=== PATIENT | female | born 1940 | race African-American/Black ===

== ENCOUNTER 2017-02-13 12:58 | Emergency (ER) | payer OTHER ==
[~2017-02-13] VITALS: Ht 165.1 cm; Wt 55.3 kg
--- NOTE | ~2017-02-13 | EKG ---
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: KKODJOVI : 1940 Requested By: Mehdi Jorgensen Order Number: [id number] MD: Bin Michael Measurements Intervals [place] Rate: 78 P: 68 MO: 185 QRS: -7 QRSD: 87 T: 46 QT: 371 QTc: 423 Interpretive Statements Sinus rhythm Ventricular trigeminy Right atrial enlargement Low voltage, extremity leads Minimal ST elevation, anterior leads Compared to ECG 04/17/2015 06:41:18 Electronically Signed On 02-13-2017 22:05:05 CDT by Bin Michael [email or web address] <ELECTRONICALLY SIGNED> By: Bin Michael MD 02/13/17 2205 1423 1423 Bin Michael MD /[facility]
[~2017-02-13 12:58] MED LIST: ADVAIR 250-501 EACH INH; ALDACTONE25 MG PO; ASPIR 8181 MG PO; COREG3.125 MG PO; COUMADIN 2.5MG2.5 M1 PO; DEMADEX20 MG PO; HYDROCODONE-AP1 EAC6 PO; LISINOPRIL2.5 M1 PO; NORVASC5 MG PO; PRAVASTATIN SOD80 MG PO; SPIRIVA INH; TYLENOL325 MG PO; VENTOLIN HFA 1818 GM INH; XANAX 0.25 MG0.25 MG PO
[2017-02-13 13:48] LABS: HEMATOCRIT 38.6 % (37.0-47.0); HEMOGLOBIN 12.6 gm/dL (12.0-15.0); MCH 28.8 pg (26.0-34.0); MCHC 32.6 g/dL (28.0-37.0); MCV 88.6 fL (80.0-100.0); RBC 4.36 mil/uL (4.20-5.00); RDW 14.7 % (10.5-14.5); WBC 10.2 thou/uL (4.0-11.0)
[2017-02-13 13:53] LABS: ANION GAP 6 mmol/L (7-16); BUN 19 mg/dL (7-18); CALCIUM 9.2 mg/dL (8.5-10.1); CHLORIDE 105 mmol/L (98-107); CO2 28 mmol/L (21-32); CREATININE 1.2 mg/dL (0.6-1.0); GLUCOSE 105 mg/dL (74-106); POTASSIUM 5.1 mmol/L (3.5-5.1); SODIUM 139 mmol/L (136-145)
[2017-02-13 14:02] LABS: TROPONIN-I < 0.04 ng/mL (<0.04-0.07)
[2017-02-13] MEDS ORDERED: KLOR-CON 1010 MEQ PO (14:28)
[2017-02-13 14:35] LABS: INR 2.3; PROTIME 24.3 Seconds (9.3-11.4)
== END 2017-02-13 15:16 | disposition home or self-care (01) ==
LOC: ER 12:58
PROVIDERS: Emergency Medicine; Nurse Practitioner Family
DX: G45.9 Transient cerebral ischemic attack, unspecified (principal); I25.2 Old myocardial infarction; E78.5 Hyperlipidemia, unspecified; I11.0 Hypertensive heart disease with heart failure; I50.9 Heart failure, unspecified; J44.9 Chronic obstructive pulmonary disease, unspecified; F10.99 Alcohol use, unspecified with unspecified alcohol-induced disorder; Z90.711 Acquired absence of uterus with remaining cervical stump

== ENCOUNTER → 2020-01-30 | Outpatient (CLI) | payer OTHER ==
[~2020-01-30] MED LIST changes: +KLOR-CON 1010 MEQ PO
== END ==
LOC: SJCVCIMAG 09:17
PROVIDERS: ATTEND Internal Medicine Cardiovascular Disease
DX: R94.31 Abnormal electrocardiogram [ECG] [EKG] (principal); I08.1 Rheumatic disorders of both mitral and tricuspid valves; I42.8 Other cardiomyopathies; E78.00 Pure hypercholesterolemia, unspecified; I70.1 Atherosclerosis of renal artery; G45.9 Transient cerebral ischemic attack, unspecified; D68.59 Other primary thrombophilia; Z95.810 Presence of automatic (implantable) cardiac defibrillator; Z86.73 Personal history of transient ischemic attack (TIA), and cerebral infarction without residual deficits

== ENCOUNTER 2021-01-24 10:48 | Inpatient (IN) | payer OTHER ==
[~2021-01-24] VITALS: Ht 167.6 cm; Wt 50.4 kg
[2021-01-24 10:59] VITALS: BP 123/100
[2021-01-24 12:15] LABS: ABSOLUTE NEUTROPHILS 9.2 thou/uL (1.4-8.2); BASOPHILS 1.1 % (0.0-2.0); EOSINOPHILS 0.8 % (0.0-3.0); LYMPHOCYTES 11.2 % (24.0-44.0); MCH 20.8 pg (26.0-34.0); MCV 69.2 fL (80.0-100.0); MONOCYTES 5.5 % (1.0-8.0); PLATELET COUNT 487 thou/uL (150-400); POLYS 81.4 % (36.0-66.0); RBC 2.83 mil/uL (4.20-5.00); RDW 22.8 % (10.5-14.5); WBC 11.3 thou/uL (4.0-11.0)
[2021-01-24 12:17] LABS: HEMOGLOBIN 5.9 gm/dL (12.0-15.0)
[2021-01-24 12:18] LABS: HEMATOCRIT 19.6 % (37.0-47.0)
[2021-01-24 12:33] LABS: ANION GAP 7 mmol/L (7-16); BUN 58 mg/dL (7-18); CALCIUM 9.5 mg/dL (8.5-10.1); CREATININE 1.3 mg/dL (0.6-1.0); GLUCOSE 145 mg/dL (74-106); SGOT 11 U/L (15-37); SGPT 17 U/L (14-59); TOTAL BILIRUBIN 0.2 mg/dL (0.2-1.0); TOTAL PROTEIN 6.7 g/dL (6.4-8.2); TROPONIN-I <0.06 ng/mL (<0.06)
[2021-01-24 12:42] LABS: CHLORIDE 105 mmol/L (98-107); CO2 22 mmol/L (21-32); SODIUM 135 mmol/L (136-145)
[2021-01-24 12:46] LABS: POTASSIUM 6.3 mmol/L (3.5-5.1)
[2021-01-24] MEDS ORDERED: CENTRUM SILVER1 EAC4 PO (12:48)
[2021-01-24] MEDS ORDERED: ELIQUIS5 MG PO (12:48)
--- NOTE | 2021-01-24 12:57 | EKG ---
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: : 1940 Requested By: Ivette Tavarez Order Number: [id number] MD: Flavio Owens Measurements Intervals [place] Rate: 90 P: 80 [place]: 187 QRS: 89 QRSD: 85 T: 65 QT: 344 QTc: 421 Interpretive Statements Sinus rhythm Low voltage with right axis deviation Compared to ECG 02/13/2017 14:23:37 Right-axis deviation now present Ventricular premature complex(es) no longer present Atrial abnormality no longer present ST (T wave) deviation still present Electronically Signed On 01-24-2021 12:57:27 CDT by Flavio Owens [email or web address] <ELECTRONICALLY SIGNED> By: Flavio Owens MD, [facility] 01/24/21 1257 1217 [facility] Flavio Owens MD, [facility] /EPI
[2021-01-24 12:59] LABS: URINE BILIRUBIN NEGATIVE (Negative); URINE BLOOD NEGATIVE (Negative); URINE CLARITY CLEAR; URINE COLOR YELLOW; URINE GLUCOSE-RANDOM* NEGATIVE (Negative); URINE KETONES NEGATIVE (Negative); URINE LEUKOCYTES-REFLEX NEGATIVE (Negative); URINE NITRITE-REFLEX NEGATIVE (Negative); URINE PROTEIN (DIPSTICK) NEGATIVE (Negative); URINE UROBILINOGEN 0.2 E.U./dl (0.2-1.0)
[2021-01-24 13:19] LABS: POLYCHROMASIA 2+; SCHISTOCYTES 1+; TARGET CELLS 1+
[2021-01-24 13:20] LABS: TEARDROPS FEW
[2021-01-24 13:37] LABS: MAGNESIUM 2.3 mg/dL (1.8-2.4); PHOSPHORUS 4.6 mg/dL (2.5-4.9)
[2021-01-24 14:29] LABS: PROTIME 10.9 Seconds (10.5-12.1)
[2021-01-24 14:40] LABS: % SATURATION 2 % (20-39); IRON 9 ug/dL (50-170); TIBC 377 ug/dL (250-450)
[2021-01-24 15:13] VITALS: BP 97/36
[2021-01-24 16:19] VITALS: BP 127/107
[2021-01-24 18:27] VITALS: BP 102/58; BP 90/50
--- NOTE | 2021-01-24 20:24 | NUR ---
RN ADMITTED PT FROM ER ABOUT 1700PM FOR GI BLEEDING AND HGB 5.9, PT IS A&O X4, PT STARTED BLOOD TRANSFUSION ABOUT 1730PM, PT DOES NOT HAVE BLOOD TRANSFUSION REACTION AT DAY SHIFT, PT HAS STRATED IV PANTOPRAZOLE 8MG /HR, PT DENIES PAIN AND SOB BY THIS ELISABETH, RN HAS REPORTED TO NEXT SHIFT TO KEEP EYE ON PT AND BLOOD TRANSFUSION.
[2021-01-24 21:30] VITALS: BP 102/58; BP 102/8
[2021-01-24 23:54] LABS: HEMATOCRIT 24.9 % (37.0-47.0); HEMOGLOBIN 7.7 gm/dL (12.0-15.0)
--- NOTE | 2021-01-25 02:24 | NUR ---
BLOOD TRANSFUSION IN PROGRESS AT START OF SHIFT.DONE AT 0.NO TRANSFUSION REACTION NOTED.H&H REPEATED ONE HOUR POST BLOOD TRANSFUSION HGB UP TO 7.7.PT CONT ON PROTONIX GTT,CLIFTON WELL.PT ATE POST TRANSFUSION.PT DENIED PAIN/DIZZINESS.PT SLEEPING ON HER BED AT THIS TIME.CALL LIGHT WITHIN REACH.
[2021-01-25 03:45] VITALS: BP 127/64
[2021-01-25 05:32] LABS: HEMATOCRIT 24.1 % (37.0-47.0); HEMOGLOBIN 7.6 gm/dL (12.0-15.0); MCHC 31.6 g/dL (28.0-37.0); MCV 72.9 fL (80.0-100.0); RBC 3.31 mil/uL (4.20-5.00); RDW 24.1 % (10.5-14.5); WBC 12.6 thou/uL (4.0-11.0)
[2021-01-25 05:39] LABS: CALCIUM 8.9 mg/dL (8.5-10.1); CREATININE 1.1 mg/dL (0.6-1.0); POTASSIUM 5.4 mmol/L (3.5-5.1)
[2021-01-25 08:10] VITALS: BP 94/50
--- NOTE | 2021-01-25 08:29 | 2DMMODE ---
[facility] [place] [address] 2 D/M-MODE ECHOCARDIOGRAM Name: ODILIA FLOYD Room #: 357-P ADM IN M.R.#: [id number] Admission: 01/24/21 Attend Phys: Jesus Gr MD Discharge: Date of : 42 Report #: [id number] THIS REPORT FOR: cc: Adolfo Rivas MD [facility] Adolfo Rivas MD [facility] Flavio Owens MD [facility] ~ APPROVED REPORT Study performed: 01/25/2021 07:41:19 EXAM: Comprehensive 2D, Doppler, and color-flow Echocardiogram Patient Location: Bedside Room #: 357 Status: routine BSA: 1.44 HR: 79 bpm BP: 127/64 mmHg Rhythm: Sinus arr Other Information Study Quality: Adequate Indications Atrial Fibrillation Dyspnea Hx: [place], cardiac arrest, AICD, COPD. 2D Dimensions RVDd: 32.00 mm IVSd: 12.00 (7-11mm) LVOT Diam: 21.00 (18-24mm) LVDd: 39.00 mm PWd: 12.00 (7-11mm) LVDs: 24.00 (25-40mm) Left Atrium: 25.00 (27-40mm) Aortic Root: 31.27 mm Volumes Left Atrial Volume (Systole) Single Plane 4CH: 29.56 mL Single Plane 2CH: 48.17 mL LA ESV Index: 28.00 mL/m2 Aortic Valve AoV Peak Amado.: 1.73 m/s AO Peak Gr.: 12.03 mmHg LVOT Max P.68 mmHg [facility] [address] [place] [address] 2 D/M-MODE ECHOCARDIOGRAM Name: EVERETTODILIA Mary Room #: 357-P [facility]#: [id number] Admission: 01/24/21 Attend Phys: Jesus Gr MD Discharge: Date of : 42 Report #: [id number] LVOT Max V: 0.96 m/s SHAMEKA Vmax: 1.90 cm2 Mitral Valve E/A Ratio: 0.7 MV Decel. Time: 171.98 ms MV E Max Amado.: 0.79 m/s MV A Amado.: 1.07 m/s MV PHT: 49.87 ms IVRT: 65.74 ms Pulmonary Valve PV Peak Amado.: 0.97 m/s PV Peak Gr.: 3.75 mmHg Tricuspid Valve TR Peak Amado.: 3.88 m/s RAP Estimate: 5.00 mmHg TR Peak Gr.: 60.18 mmHg PA Pressure: 65.00 mmHg Left Ventricle The left ventricle is normal size. There is normal LV segmental wall motion. Mild concentric left ventricular hypertrophy. Left ventricular systolic function is normal. LVEF is 55%. Mild diastolic dysfunction is present (impaired relaxation pattern). Right Ventricle The right ventricle is normal size. The right ventricular systolic function is normal. Device lead is present in the right ventricle. Atria The left atrium size is normal. The right atrium size is normal. Aortic Valve The aortic valve is normal in structure; leaflets are mildly sclerotic. No aortic regurgitation is present. There is no aortic valvular stenosis. Mitral Valve The mitral valve is normal in structure. Moderate mitral annular calcification. Moderate mitral regurgitation. No evidence of mitral valve stenosis. Tricuspid Valve The tricuspid valve is normal in structure. Moderate tricuspid regurgitation. Estimated PAP is 65mmHg. [facility] [address] [place] [address] 2 D/M-MODE ECHOCARDIOGRAM Name: ODILIA FLOYD Room #: 357-P ADM IN M.R.#: [id number] Admission: 01/24/21 Attend Phys: Jesus Gr MD Discharge: Date of : 42 Report #: [id number] Pulmonic Valve The pulmonary valve is normal in structure. Trace pulmonic regurgitation. Great Vessels The aortic root is normal in size. Ascending aorta is not well visualized. IVC is normal in size and collapses >50% with inspiration. Pericardium There is no pericardial effusion. <Conclusion> Normal left ventricular size with mild concentric hypertrophy Ejection fraction 55% Grade 1 diastolic dysfunction Normal right ventricle size/function Normal atrial size Color-flow Doppler study was performed of the aortic/mitral/tricuspid/pulmonary valve Normal aortic valve structure and function Moderate mitral annular calcification Moderate mitral valve insufficiency Mild to moderate tricuspid valve insufficiency Pulmonary systolic pressure estimated 65 mmHg No pericardial effusion Normal aortic root size. <ELECTRONICALLY SIGNED> By: Flavio Owens MD, FACC 01/25/21828 8 8 Flavio Owens MD, FACC /INF
[2021-01-25 11:34] VITALS: BP 97/44
--- NOTE | 2021-01-25 15:08 | NUR ---
INITIAL ASSESSMENT: Received consult. ZEN reviewed chart and spoke with nursing and attending physician. Pt was admitted from home due to GI bleed. Pt has had a blood transfusion. GI consulted. Plan for EGD/colonoscopy tomorrow. Pt with cecum mass. Pt is on IV iron. SW met with pt at bedside. Introduced role of SW. Pt is alert/orientated x 4. Pt reports she lives at home alone. Prior to admission, pt was independent with ADLs. No use of DME. Pt has used [facility] in the past. Pt reports she does not currently have a PCP. Plan is for pt to discharge home when medically stable. SW is following to assist as needed with discharge planning.
[2021-01-25 15:40] VITALS: BP 114/49
--- NOTE | 2021-01-25 16:11 | NUR ---
BPCI letter and preferred provider network list provided to patient, lives in home setting
[2021-01-25 17:49] VITALS: BP 111/59
[2021-01-25 19:57] VITALS: BP 114/57
--- NOTE | 2021-01-25 19:57 | NUR ---
RN ASSUMED PT'S CARE AT 0700AM, PT IS A&OX3 ( PERSON , PLACE AND TIME), PT'S GI BLEEDING AND HGB HAVE IMPROVED, PT'S VS ARE STABLE, PT GETS UP TO CHAIR WITH ASSIST, PT IS GOING TO HAVE EGD AND COLONCOSPY TOMORROW. RN HAS REPROT TO NEXT SHIFT TO CONTINUINE DR ORDER FOR EGD , PT WILL BE NPO AFTER MN .
[2021-01-26 04:40] VITALS: BP 101/57
[2021-01-26 05:22] LABS: CALCIUM 8.6 mg/dL (8.5-10.1); CREATININE 0.9 mg/dL (0.6-1.0); POTASSIUM 4.9 mmol/L (3.5-5.1)
--- NOTE | 2021-01-26 07:48 | NUR ---
PROGRESS PT A/O X4 UP AD JONNY. DRANK 100% OF BOWEL PREP AND STOOLS ARE CLEAR. DENIES PAIN. IV TO RAC AND LF SL FLUSHES WITHOUT DIFFICULTY. NPO AFTER MN CONTINUE POC.
[2021-01-26 08:06] VITALS: BP 107/45
[2021-01-26 09:17] LABS: HEMATOCRIT 25.3 % (37.0-47.0); HEMOGLOBIN 7.7 gm/dL (12.0-15.0); MCH 22.7 pg (26.0-34.0); MCHC 30.3 g/dL (28.0-37.0); MCV 75.1 fL (80.0-100.0); RBC 3.37 mil/uL (4.20-5.00); RDW 24.4 % (10.5-14.5); WBC 14.8 thou/uL (4.0-11.0)
[2021-01-26 11:50] VITALS: BP 118/49
--- NOTE | 2021-01-26 17:58 | NUR ---
PATIENT HAD COLONOSCOPY AND EGD COMPLETED THIS SHIFT. PATIENT REMAINS A/OX3, FC, SAHA AND STANDBY ASSIST. PATIENT INFORMED ABOUT ONCOLOGY AND SURGICAL CONSULTS. FAMILY UPDATED THROUGHOUT SHIFT. NO C/O BLOOD IN STOOL OR NAUSEA.
[2021-01-26 19:15] VITALS: BP 117/61
[2021-01-27 03:45] VITALS: BP 112/56
--- NOTE | 2021-01-27 04:51 | NUR ---
Patient making slow progress towards outcome goals. Cancer work up in progress. CT of chest with contrast done tonight. Vital signs and rhythm stable. Denies pain. Up x 1 assist. High fall risks, fall precautions in place. Calls out appropriately for needs.
[2021-01-27 05:38] LABS: HEMOGLOBIN 6.9 gm/dL (12.0-15.0)
[2021-01-27 05:42] LABS: MCH 23.2 pg (26.0-34.0); MCHC 31.1 g/dL (28.0-37.0); MCV 74.5 fL (80.0-100.0); RBC 2.95 mil/uL (4.20-5.00); RDW 24.8 % (10.5-14.5); WBC 12.6 thou/uL (4.0-11.0)
[2021-01-27 05:49] LABS: CREATININE 0.7 mg/dL (0.6-1.0); MAGNESIUM 1.9 mg/dL (1.8-2.4); POTASSIUM 4.3 mmol/L (3.5-5.1)
[2021-01-27 07:58] VITALS: BP 91/47
[2021-01-27 12:02] VITALS: BP 115/41; BP 123/50; BP 95/48
[2021-01-27 13:09] LABS: CA 125 4.1 U/mL (0.0-38.1)
[2021-01-27 15:13] VITALS: BP 115/41
--- NOTE | 2021-01-27 15:42 | NUR ---
PT TOLERATED BLOOD INFUSION. VITALS WNL.
--- NOTE | 2021-01-27 16:28 | NUR ---
SW reviewed chart and spoke with nursing and attending physician. Pt had EGD/colonoscopy yesterday. Pt with cecum mass. Hem/onc and surgery consulted. Pt had blood transfusion earlier today. Pt is in the BPCI program. SW is following to assist as needed with discharge planning.
[2021-01-27 20:10] VITALS: BP 101/49
--- NOTE | 2021-01-28 04:00 | NUR ---
Patient making slow progress towards outcome goals. Vital signs and rhythm stable. Up with standby assist to BSC. High fall risks, fall precautions in place. Calls out appropriately for needs. Await surgery schedule.
[2021-01-28 04:10] VITALS: BP 115/55
[2021-01-28 04:16] LABS: HEMATOCRIT 28.7 % (37.0-47.0); MCH 24.3 pg (26.0-34.0); MCHC 31.3 g/dL (28.0-37.0); MCV 77.5 fL (80.0-100.0); RBC 3.7 mil/uL (4.20-5.00); RDW 24.6 % (10.5-14.5); WBC 11.1 thou/uL (4.0-11.0)
[2021-01-28 04:30] LABS: CALCIUM 8.2 mg/dL (8.5-10.1); CREATININE 0.8 mg/dL (0.6-1.0); MAGNESIUM 1.9 mg/dL (1.8-2.4)
[2021-01-28 07:12] VITALS: BP 108/50
[2021-01-28 11:50] VITALS: BP 117/70
[2021-01-28 13:08] LABS: CEA 1.4 ng/mL (0.0-4.7)
--- NOTE | 2021-01-28 13:57 | NUR ---
SW reviewed chart and spoke with nursing and attending physician. No weekend discharge planned. Pt is on IV iron. Surgery consulted. Plan for lap right hemicolectomy next week. Hem/Onc consulted. ZEN is following to assist as needed with discharge planning.
[2021-01-28 15:35] VITALS: BP 127/59
[2021-01-29 04:39] VITALS: BP 116/54
[2021-01-29 05:35] LABS: HEMATOCRIT 27.9 % (37.0-47.0); HEMOGLOBIN 8.9 gm/dL (12.0-15.0); MCHC 32.1 g/dL (28.0-37.0); RBC 3.57 mil/uL (4.20-5.00); RDW 25.4 % (10.5-14.5); WBC 9.8 thou/uL (4.0-11.0)
[2021-01-29 05:42] LABS: CALCIUM 7.7 mg/dL (8.5-10.1); CREATININE 0.8 mg/dL (0.6-1.0); MAGNESIUM 1.9 mg/dL (1.8-2.4); POTASSIUM 3.9 mmol/L (3.5-5.1)
[2021-01-29 07:10] VITALS: BP 126/67
[2021-01-29 11:12] VITALS: BP 98/51
[2021-01-29 15:20] VITALS: BP 113/64
[2021-01-29 19:42] VITALS: BP 93/47
[2021-01-30 03:01] VITALS: BP 136/74
[2021-01-30 05:34] LABS: HEMATOCRIT 29.9 % (37.0-47.0); HEMOGLOBIN 9.3 gm/dL (12.0-15.0); MCH 24.6 pg (26.0-34.0); MCHC 31.1 g/dL (28.0-37.0); RBC 3.79 mil/uL (4.20-5.00); RDW 25.8 % (10.5-14.5); WBC 9.8 thou/uL (4.0-11.0)
--- NOTE | 2021-01-30 07:17 | NUR ---
PROGRESS PT A/O X4 UP AD JONNY VSS, PT WORRIED ABOUT PENDING SURGERY. I TRIED TO REASSURE HER THAT IT IS A COMMON PROCEDURE AND EVEN THOUGH SHE IS ALMOST 81 YRS OLD SHE WOULD DO WELL BECAUSE SHE IS ACTIVE AND IN GOOD SHAPE. REPORTED HEADACHE AND TYLENOL GIVEN WTIH EFFECT PT SLEEPING AFTER.
[2021-01-30 07:39] VITALS: BP 125/54
[2021-01-30 11:03] VITALS: BP 127/76
[2021-01-30 15:28] VITALS: BP 119/52
[2021-01-30 18:55] VITALS: BP 124/60
[2021-01-31 05:30] VITALS: BP 130/69
--- NOTE | 2021-01-31 05:55 | NUR ---
Pt. stated she didn't sleep at all and have been up all night. No signs of bleeding. Denies any other concern. Up ad cat in room with steady gait.
[2021-01-31 07:05] VITALS: BP 137/69
[2021-01-31 11:03] VITALS: BP 131/54
[2021-01-31 15:39] VITALS: BP 112/65
--- NOTE | 2021-01-31 18:34 | NUR ---
ASSUMED PATIENT CARE AT 0700. A/0 X4. NO BLEEDING NOTED. PROGRESSING TOWARDS POC GOALS.
[2021-01-31 21:23] VITALS: BP 125/79
[2021-02-01 03:40] VITALS: BP 137/78
--- NOTE | 2021-02-01 06:09 | NUR ---
VSS OVERNIGHT. NO BLEEDING SEEN. PT UP TO BATHROOM AD JONNY. PT WAITING ON SURGERY. IN PREVIOUS NOTE SAID ONOCOLOGY WAS TO BE CONSULTED, HAVE NOT SEEN THE ORDER FOR CONSULT. WILL PASS INFORMATION ALONG TO DAY NURSE.
[2021-02-01 07:26] VITALS: BP 116/67
[2021-02-01 11:15] VITALS: BP 103/36
--- NOTE | 2021-02-01 13:08 | NUR ---
SW reviewed chart and spoke with nursing and attending physician. Lap right hemicolectomy is anticipated for tomorrow per surgery. Pt is in the BPCI program. ZEN is following to assist as needed with discharge planning.
[2021-02-01 15:17] VITALS: BP 135/71
[2021-02-01 21:43] VITALS: BP 118/69
--- NOTE | 2021-02-02 04:38 | NUR ---
aware of plan for surgery this am. she would like to talk with doctor first. she has had multiple bm's. liquid brownish/ yellow. denies pain. she is calm and cooperative.
[2021-02-02 04:47] VITALS: BP 117/72
[2021-02-02 06:18] LABS: HEMATOCRIT 31.8 % (37.0-47.0); MCH 25.4 pg (26.0-34.0); MCHC 31.4 g/dL (28.0-37.0); MCV 80.8 fL (80.0-100.0); RBC 3.93 mil/uL (4.20-5.00); RDW 27.2 % (10.5-14.5); WBC 8.6 thou/uL (4.0-11.0)
[2021-02-02 06:38] LABS: CALCIUM 7.8 mg/dL (8.5-10.1); CREATININE 0.8 mg/dL (0.6-1.0)
[2021-02-02 08:13] VITALS: BP 115/64
--- NOTE | 2021-02-02 08:47 | NUR ---
PT TO SURGERY APPROXIMATELY 809
[2021-02-02 12:31] VITALS: BP 112/66
--- NOTE | 2021-02-02 13:58 | NUR ---
SW reviewed chart and spoke with nursing and attending physician. Pt currently off the unit. Pt had surgery this morning. Will request therapy evals after surgery. Pt is in the BPCI program. SW is following to assist as needed with discharge planning.
[2021-02-02 15:25] VITALS: BP 118/54
--- NOTE | 2021-02-02 16:09 | PATH ---
[facility] [address] [place] [address] PATHOLOGY RPT PROCEDURE Name: NEVA FLOYD Room #: 357-P ADM IN M.R.#: [id number] Admission: 01/24/21 Date of : 42 Discharge: Report #: [id number] Path Case #: [id number] [facility] Accession Number: [id number] . 01 Material submitted: . PART A: stomach - BIOPSY ANTRUM PART B: cecum - CECAL POLYP BIOPSY PART C: colon - ASCENDING COLON POLYP BIOPSY X5. Modifiers: ascending, X5 PART D: colon - DESCENDING COLON POLYP BIOPSY. Modifiers: descending . 01 Clinical history: . UGIB,SYMPTOMATIC ANEMIA,HYPERKALEMIA EGD,COLONOSCOPY IRON DEFICIENCY,ABNORMAL CT SHOWS CECU . 02 Diagnosis: A. Gastric mucosa, antrum, endoscopic biopsy: - Mild chronic gastritis. - Negative for intestinal metaplasia or atrophy. - Negative for Helicobacter pylori (properly-controlled immunohistochemical stain performed). . B. Polyp, cecal polyp, endoscopic biopsy: - FRAGMENTS OF TUBULAR ADENOMA WITH HIGH GRADE DYSPLASIA, SEE COMMENT. - No definitive invasive carcinoma identified. . C. Polyp, ascending colon polyp x5, endoscopic biopsy: - Multiple fragments of tubular adenoma, inflamed. - No definite high grade dysplasia or malignancy identified. . D. Tissue designated as, "descending colon polyp", endoscopic biopsy: - No tissue present within container. . (IUV:mml; 02/01/2021) [facility] 02/01/2021 1638 Local . 02 Comment: Part B: Dr. Contreras Estes has seen personnel representative slide of this case and concurs with my diagnosis. The findings are communicated to Dr. Shahid Britton on morning of 02/01/2021. . D. Lack of tissue within "descending colon polyp" container was communicated to Dr. Shahid Britton at approximately 3:00 p.m. on 01/28/21. . (IUV:mml; 02/01/2021) . 02 Electronically signed: . [address] [place] [address] PATHOLOGY RPT PROCEDURE Name: NEVA FLOYD Room #: 357-P [facility] IN M.R.#: [id number] Admission: 01/24/21 Date of : 42 Discharge: Report #: [id number] Path Case #: [id number] Deisy Shin MD, Pathologist NPI- [id number] . 01 Gross description: . A. Received in formalin labeled "Neva Floyd, biopsy antrum for H. pylori" are 2 fragments of sousa-brown soft tissue measuring 0.7 x 0.4 x 0.3 cm and 0.3 x 0.3 x 0.3 cm. The specimen is submitted entirely in A1. . B. Received in formalin labeled "Neva Floyd cecal polyp biopsy" are multiple fragments of sousa-brown soft tissue measuring in aggregate 1.4 x 0.4 x 0.2 cm. The specimen is submitted entirely in B1. . C. Received in formalin labeled "Neva Floyd ascending colon polyp biopsy" are multiple fragments of sousa-brown soft tissue measuring in aggregate 1.8 x 0.5 x 0.3 cm. The specimen is submitted entirely in C1. . D. Received in formalin labeled "Neva Floyd descending colon polyp" there is no soft tissue grossly identified. The specimen is filtered through a mesh bag and submitted entirely in cassette D1. Specimen may not survive processing.([facility]; 01/28/2021) GZA/GZA 01/28/2021 [facility]0 Local . 02 Pathologist provided ICD-10: K29.50, D12.0, D12.2 . 02 CPT . 233865, [id number], 441637 Specimen Comment: A courtesy copy of this report has been sent to [phone] Specimen Comment: [phone] Specimen Comment: Report sent to , DR BRITTON / DR GOMES Specimen Comment: A duplicate report has been generated due to demographic updates. Performed at: [address] [facility], [place] [id number] MD Segundo Gant MD Phone: [phone] Performed at: [address] [id number] MD Deisy Shin MD Phone: [phone]
--- NOTE | 2021-02-02 19:07 | NUR ---
PT BACK FROM SURGERY IN AFTERNOON. PT HAD 2 DOSES PAIN MEDICATION PER REQUEST. PT WAS ABLE TO DANGLE ON SIDE OF BED AND ABDOMINAL BINDER PLACED BY THIS RN. PT WAS ABLE TO STAND BRIEFLY, BUT DECLINED MORE TIME DUE TO PAIN. PT ABLE TO TAKE PILLS PO, CATH IN PLACE WITH ORDERS TO REMOVE TOMORROW MORNING. NO OTHER CONCERNS FROM PT AT THIS TIME. ABDOMINAL DRESSING DRY.
[2021-02-02 20:00] VITALS: BP 119/55
[2021-02-03 00:04] VITALS: BP 109/55
--- NOTE | 2021-02-03 03:15 | NUR ---
PROGRESS PT A/O X4. VERY DROWSY FROM SURGERY TODAY. VSS. LAP SITES COVERED AND REMAIN C/D/I ABDOMEN SOFT WITH POSITIVE BS TOLERATING CLEAR LIQUIDS IN SMALL AMOUNTS.ABDOMINAL BINDER IN PLACE PT RATING PAIN A 2 AND DENIES NEED FOR MEDICATION. CHARLES IN PLACE DRAINING CLEAR YELLOW URINE TO BE DISCONTINUED AT 6 AM. PT TOO GROGGY TO AMBULATE SLEPT MOST OF SHIFT.
[2021-02-03 04:16] VITALS: BP 105/60
[2021-02-03 06:09] LABS: HEMATOCRIT 29.3 % (37.0-47.0); MCH 25.2 pg (26.0-34.0); MCHC 30.6 g/dL (28.0-37.0); MCV 82.5 fL (80.0-100.0); RBC 3.55 mil/uL (4.20-5.00); RDW 27.5 % (10.5-14.5); WBC 13.4 thou/uL (4.0-11.0)
[2021-02-03 06:24] LABS: ALBUMIN 2.1 g/dL (3.4-5.0); CALCIUM 7.6 mg/dL (8.5-10.1); PHOSPHORUS 3.2 mg/dL (2.5-4.9); POTASSIUM 4.6 mmol/L (3.5-5.1)
[2021-02-03 07:56] VITALS: BP 135/90
--- NOTE | 2021-02-03 08:36 | NUR ---
Pt HAD R LAPAROSCOPIC HEMICOLECTOMY YESTERDAY. NO NEW ORDERS NEEDED FOR PT SURGERY WAS LAPAROSCOPIC AND NOT OPEN. WILL PLAN TO SEE Pt TODAY FOR PT SESSION.
--- NOTE | 2021-02-03 14:58 | NUR ---
SW reviewed chart and spoke with nursing and attending physician. Pt is POD #1 lap right hemicolectomy. Pt is on clear liquids today. PT/OT worked with pt. [facility] consult ordered. ZEN discussed case with [facility] vocational rehabilitation administrator, who states they are able to accept pt. SW met with pt at bedside to discuss discharge plan. Pt states she feels weak, but is hopeful to be able to go home. Pt is wanting to see how therapy goes tomorrow, and then will decide on 5N v. Home with HH. Pt is in the BPCI program. SW updated [facility] vocational rehabilitation administrator. SW is following to assist as needed with discharge planning.
[2021-02-03 15:16] VITALS: BP 106/53
[2021-02-03 19:54] VITALS: BP 94/44
[2021-02-04 03:54] VITALS: BP 111/64
[2021-02-04 05:26] LABS: HEMATOCRIT 29.8 % (37.0-47.0); HEMOGLOBIN 9.4 gm/dL (12.0-15.0); MCH 26.1 pg (26.0-34.0); MCHC 31.6 g/dL (28.0-37.0); MCV 82.6 fL (80.0-100.0); RBC 3.61 mil/uL (4.20-5.00); RDW 26.1 % (10.5-14.5); WBC 10.6 thou/uL (4.0-11.0)
[2021-02-04 05:30] LABS: ALBUMIN 2.1 g/dL (3.4-5.0); CALCIUM 7.8 mg/dL (8.5-10.1); POTASSIUM 4.3 mmol/L (3.5-5.1)
[2021-02-04 07:08] VITALS: BP 114/63
--- NOTE | 2021-02-04 08:01 | NUR ---
PROGRESS PT'S PAIN CONTROLLED WITH SCHEDULED TYLENOL. BLADDERSCANNED X 2 13 ML'S AT 2200 LAST NIGHT AND 130 ML'S THIS AM AT 5. PT STATED SHE FEELS IF SHE COULD VOID SOON. NOTIFIED OF URINARY DIFFICULTY NO ORDERS JUST ADVISED TO CONTINUE TO MONITOR.
--- NOTE | 2021-02-04 10:00 | NUR ---
PT STILL UNABLE TO VOID ADEQUATE AMOUNTS..PT ENCOURAGED TO INCREASE PO... POSSIBLE REHAB TODAY..PT STILL ON CLEAR LIQUIDS...VERY UNSTEADY WHEN OOB..KNEES BUCKLE WITHOUT WARNING...GAIT BELT AND WALKER WITH CLOSE SUPERVISION...
[2021-02-04 11:05] VITALS: BP 98/47
--- NOTE | 2021-02-04 13:52 | NUR ---
DISCHARGE NOTE: SW reviewed chart and spoke with nursing and attending physician. Pt is medically stable for discharge to [facility] today. Pt has been accepted. SW met with pt at bedside to discuss discharge to 5[facility]. Pt is aware and agreeable with plan. Pt is on liquids and hoping to have her diet advanced soon. Rehab CM to follow and assist as needed with discharge planning.
[2021-02-04 15:16] VITALS: BP 110/51
[2021-02-04 19:26] VITALS: BP 104/55
[2021-02-05 03:25] VITALS: BP 104/58
--- NOTE | 2021-02-05 04:11 | NUR ---
Patient making slow progress towards outcome goals. Vital signs and rhythm stable. Tramadol given for abdominal pain with relief. High fall risks, fall precautions in place. Calls out appropriately for needs. Low oral fluid intake, encourage to increase. Urine output 350 per BSC. Abdominal binder in place.
[2021-02-05 07:35] VITALS: BP 106/52
[2021-02-05 11:28] VITALS: BP 98/60
[2021-02-05 15:15] VITALS: BP 103/61
[2021-02-05 19:21] VITALS: BP 96/47
[2021-02-06 03:36] VITALS: BP 102/64
--- NOTE | 2021-02-06 05:04 | NUR ---
Patient making progress towards outcome goals. Vital signs and rhythm stable. Feels energy improving, appetite slowly improving. Discharge plans to rehab. High fall risks, falls precautions in place. Calls out appropriately for needs.
[2021-02-06 11:21] VITALS: BP 103/50
[2021-02-06 15:16] VITALS: BP 101/56
[2021-02-06 19:30] VITALS: BP 119/60
[2021-02-07 04:10] VITALS: BP 132/75
--- NOTE | 2021-02-07 04:15 | NUR ---
Patient making progress towards outcome goals. Feeling stronger, up to bathroom x 1 assist. Good pain control with Tramadol/Tylenol. Encouraged to increase oral fluid and food intake. High fall risks, fall precautions in place.
[2021-02-07 07:10] VITALS: BP 144/80
[2021-02-07 11:42] VITALS: BP 119/68
[2021-02-07] MEDS ORDERED: COLACE 100 MG100 MG PO (11:43)
[2021-02-07] MEDS ORDERED: PROTONIX 20 MG20 M1 PO (11:43)
[2021-02-07] MEDS ORDERED: TRAMADOL 50 MG50 MG PO (11:43)
[2021-02-07] MEDS ORDERED: LISINOPRIL10 MG PO (11:43)
[2021-02-07] MEDS ORDERED: NEURONTIN 300M300 M2 PO (11:43)
[2021-02-07] MEDS ORDERED: ENTEREG12 MG PO (11:43)
--- NOTE | 2021-02-07 14:05 | NUR ---
DISCHARGE NOTE: ZEN reviewed chart and spoke with nursing and attending physician. Pt is medically stable for discharge to [facility] today. Discharge to [facility] last Sunday was cancelled. A bed was not available over the weekend for admission. Oncology consulted and evaluted pt earlier today. ZEN confirmed with [facility] rehabilitation director that they are able to accept pt today. Pt will need a repeat COVID test completed prior to discharge. ZEN met with pt at bedside to discuss discharge to [facility]. Pt is aware and agreeable with plan. SW offered to notify pt's family. Pt states that she is keeping her family updated. Rehab CM to follow and assist as needed with discharge planning.
[2021-02-07 16:11] VITALS: BP 138/71
--- NOTE | 2021-02-09 19:07 | PATH ---
[facility] [place] [address] [place] [address] PATHOLOGY RPT PROCEDURE Name: NEVA FLOYD Room #: 357-P [facility] IN M.R.#: [id number] Admission: 01/24/21 Date of : 42 Discharge: 02/07/21 Report #: [id number] Path Case #: [id number] [facility] Accession Number: [id number] . 01 Material submitted: . colon - RIGHT COLON. Modifiers: right . 01 Clinical history: . LAPAROSCOPIC RIGHT SUBTOTAL COLECTOMY RIGHT COLON MASS . 02 Diagnosis: Small bowel, appendix and large intestine, laparoscopic right subtotal colectomy: - INVASIVE MODERATELY DIFFERENTIATED COLONIC ADENOCARCINOMA INVADING INTO SUBMUCOSA, MEASURING 4.0 CM IN GREATEST DIMENSION. - Margins of resection free of malignancy; closest proximal margin is 5.5 cm away. - Fibrous obliteration of the tip of appendix. - Terminal ileum showing no diagnostic abnormalities. - Seventeen reactive lymph nodes; negative for malignancy (0/17). (IUV:salena; 02/03/2021) . . Surgical Pathology Cancer Case Summary . Protocol posting date: October 2019 . COLON AND RECTUM: Resection, Including Transanal Disk Excision of Rectal Neoplasms . Procedure ___ Right subtotal colectomy . Tumor Site ___ Right colon . Tumor Size Greatest dimension (centimeters): 4.0 cm . Macroscopic Tumor Perforation ___ Not identified . Histologic Type ___ Adenocarcinoma . Histologic Grade ___ G2: Moderately differentiated [facility] [address] [place] [address] PATHOLOGY RPT PROCEDURE Name: NEVA FLOYD Room #: 357-P [facility] IN [facility].#: [id number] Admission: 01/24/21 Date of : 42 Discharge: 02/07/21 Report #: [id number] Path Case #: [id number] . Tumor Extension ___ Tumor invades submucosa . Margins ___ All margins are uninvolved by invasive carcinoma, high-grade dysplasia, intramucosal adenocarcinoma, and adenoma Margins examined: Distance of invasive carcinoma from closest margin: 5.5 cm Specify closest margin: proximal margin . Treatment Effect ___ No known presurgical therapy . Lymphovascular Invasion ___ Not identified . Perineural Invasion ___ Not identified . Tumor Deposits ___ Not identified . Regional Lymph Nodes . Number of Lymph Nodes Involved: 0 . Number of Lymph Nodes Examined: 17 . Pathologic Stage Classification (pTNM, AJCC 8th Edition) Note: Reporting of pT, pN, and (when applicable) pM categories is based on information available to the pathologist at the time the report is issued. . Primary Tumor (pT) ___ pT1: Tumor invades the submucosa (through the muscularis mucosa but not into the muscularis propria) . Regional Lymph Nodes (pN) ___ pN0: No regional lymph node metastasis . Distant Metastasis (pM) (required only if confirmed pathologically in this case) ___ pMx: Not known S 02/03/2021 1649 Local . 02 Addendum: . At the request of Dr. Rafiq Bermudez (oncologist), mismatch repair [address] [address] PATHOLOGY RPT PROCEDURE Name: NEVA FLOYD Room #: 357-P [facility] IN [facility]#: [id number] Admission: 01/24/21 Date of : 41 Discharge: 02/07/21 Report #: [id number] Path Case #: [id number] (MMR) protein immunohistochemical staining was performed. . Reason for testing:To evaluate for evidence of defective mismatch repair proteins. Method:Immunohistochemical staining for the presence or absence of protein expression of one or more of the following MMR protein markers: MLH1, MSH2, MSH6 and PMS2. Tumor type:Invasive adenocarcinoma . Results: MLH1 - Preserved MSH2 - Preserved MSH6 - Preserved PMS2 - Preserved . Mismatch Repair Status:MMR Proficient (MMR-P) . Interpretation: . (MMR-P) All four MMR proteins are preserved within tumor cells. This suggests the presence of normal DNA mismatch repair function within the tumor and an observable defect in mismatch repair is not identified. The likelihood that this patient has an inherited germline mutation syndrome due to defective mismatch repair is reduced but not totally eliminated. If the patient has a strong personal or family history of HPNCC/Kowalski syndrome related cancers (colorectal, endometrial, gastric, ovarian, pancreatic, ureter/renal pelvis, biliary tract, brain, small bowel and Bear-Julian syndrome), consider MSI testing by PCR methodology. Suggest clinical correlation and follow up. . These test results are designed for screening purposes only and are useful tools in identifying cancer patients that are more likely to have Kowalski Syndrome related diagnoses. Tests should be interpreted in the context of clinical findings, family history and laboratory data. Abnormal IHC results for MMR protein expression are not considered diagnostic for Kowalski Syndrome. . (IUV:hourly shift; 02/09/2021) . Professional services performed by [employer] at [facility], [address] [place] [address], [place] [address]. Technical services performed by [employer] at [address] [place] [address], [address] [address]. MBR/02/09/2021 Addendum Electronically Signed by Deisy Shin MD, Pathologist . 02 Electronically signed: . Deisy Shin MD, Pathologist NPI- [id number] [place] [address] PATHOLOGY RPT PROCEDURE Name: NEVA FLOYD Room #: 357-P [facility] IN ..#: [id number] Admission: 01/24/21 Date of : 42 Discharge: 02/07/21 Report #: [id number] Path Case #: [id number] . 01 Gross description: . The specimen is received in formalin, labeled "Neva Floyd, right colon" received as a right hemicolectomy specimen received as terminal ileum, cecum with appendix and ascending colon. . The specimen is remarkable for a cecal mass completely obstructing the appendiceal orifice. . The appendix measures 5.7 x 0.6 cm and is unremarkable in the distal three fourths. The colon measures 7.1 cm from ileal margin to ileocecal valve and 16.2 cm from ileocecal valve to distal margin. Proximal and distal margins are inked black. There is a palpable mass located in the cecum and the corresponding radial soft margin, 6.5 cm away, is shaved and submitted in cassette A4. . The circumferences are as follows: 3.2 cm at terminal ileum, 4.5 cm at ileocecal valve, 9.5 cm at cecum, 9.7 cm at ascending colon and 6.1 cm at distal margin. The mucosa of the terminal ileum, ileocecal valve and cecum away from the cecal mass is soft pink-sousa unremarkable. . The mucosa of the cecum is remarkable for a soft pink-sousa periappendiceal mass measuring 4 x 2.7 x 2 cm. The mass comes to within 5.5 and 15 cm of the proximal and distal margins. On sectioning, the mass measures up to 2 cm in thickness and does appear to be limited to the mucosa coming to within 0.3 cm of the tattooed black area in the serosa. The mass only focally distorts the muscarlis layer. . Additional lesions in the ascending colon measuring up to 0.7 cm are identified within 2 cm of the cecal mass and 5.5 cm from the distal margin; grossly limited to the mucosa. . The wall thickness away from the mass is within normal limits. Multiple soft pink-sousa possible lymph nodes ranging from 0.1 to 1.1 cm are identified. . Fringe Weaver sections are submitted in 20 cassettes as follows: A1 Terminal ileal margin, perpendicular section A2 Distal margin, perpendicular section A3 Appendix A4 Shaved radial soft tissue margin A5 Ileum and ICV A6 Uninvolved Cecum A7-A12 -50% of the Cecal Mass (relationship to proximal appendix in A7 and A8) A13 Additional lesion closest to mass A14-A16 Additional lesions A17 Additional lesion closest to distal margin [address] [address] PATHOLOGY RPT PROCEDURE Name: NEVA FLOYD Room #: 357-P [facility] IN ..#: [id number] Admission: 01/24/21 Date of : 42 Discharge: 02/07/21 Report #: [id number] Path Case #: [id number] A18-A20 Lymph nodes A18 multiple lymph nodes A19 3 lymph nodes A20 lymph nodes (MLH; 02/02/2021) ERMA/ERMA 02/03/2021 1537 Local . 02 Pathologist provided ICD-10: C18.9 . 02 CPT . 739801, [id number], [id number] Specimen Comment: A courtesy copy of this report has been sent to [phone] Specimen Comment: [phone], Specimen Comment: Report sent to ,DR ENGLAND / DR GOMES Performed at: 01 [facility] [address], [place] [id number] MD Segundo Gant MD Phone: [phone] Performed at: [address] [id number] MD Deisy Shin MD Phone: [phone]
== END 2021-02-07 16:29 | DRG 329 ==
LOC: ER 10:48 → 3W 15:19 → EROBS 15:19 → 3W 16:10
PROVIDERS: Anesthesiology; Hospitalist; Internal Medicine; Nurse Practitioner; Nurse Practitioner Adult Health; Nurse Practitioner Family; Surgery; ADMIT Internal Medicine; ATTEND Internal Medicine
DX: C18.0 Malignant neoplasm of cecum (principal); R65.11 Systemic inflammatory response syndrome (SIRS) of non-infectious origin with acute organ dysfunction; E43 Unspecified severe protein-calorie malnutrition; N17.0 Acute kidney failure with tubular necrosis; K29.71 Gastritis, unspecified, with bleeding; K57.31 Diverticulosis of large intestine without perforation or abscess with bleeding; I42.9 Cardiomyopathy, unspecified; I42.8 Other cardiomyopathies; I50.32 Chronic diastolic (congestive) heart failure; D62 Acute posthemorrhagic anemia; Z68.1 Body mass index [BMI] 19.9 or less, adult; R63.4 Abnormal weight loss; E78.5 Hyperlipidemia, unspecified; I11.0 Hypertensive heart disease with heart failure; E87.5 Hyperkalemia; I25.10 Atherosclerotic heart disease of native coronary artery without angina pectoris; I95.9 Hypotension, unspecified; I70.1 Atherosclerosis of renal artery; I48.0 Paroxysmal atrial fibrillation; K63.5 Polyp of colon; R53.81 Other malaise; G47.00 Insomnia, unspecified; K20.80 Other esophagitis without bleeding; K44.9 Diaphragmatic hernia without obstruction or gangrene; R33.9 Retention of urine, unspecified; K64.8 Other hemorrhoids; J44.9 Chronic obstructive pulmonary disease, unspecified; Z20.822 Contact with and (suspected) exposure to COVID-19; Z60.2 Problems related to living alone; Z79.01 Long term (current) use of anticoagulants; Z79.899 Other long term (current) drug therapy; I25.2 Old myocardial infarction; Z87.891 Personal history of nicotine dependence; Z86.73 Personal history of transient ischemic attack (TIA), and cerebral infarction without residual deficits; Z90.711 Acquired absence of uterus with remaining cervical stump; Z95.810 Presence of automatic (implantable) cardiac defibrillator
CPT/HCPCS: 10879; 50010; 50101; 50386; 50455; 50525; 50555; 51412; 51708; 51712; 52265; 53307; 53310; 54118; 56524; 56525; 56526; 56529; 57092; 58115; 58574; 58586; 62110; 62900; 70005

== ENCOUNTER 2021-02-04 12:14 | Inpatient (IN) | payer OTHER ==
[~2021-02-04] VITALS: Ht 167.6 cm; Wt 45.8 kg
[~2021-02-04 12:14] MED LIST changes: +CENTRUM SILVER1 EAC4 PO; +ELIQUIS5 MG PO
[2021-02-05 05:46] LABS: HEMATOCRIT 28.9 % (37.0-47.0); HEMOGLOBIN 8.9 gm/dL (12.0-15.0); MCH 25.7 pg (26.0-34.0); MCHC 30.8 g/dL (28.0-37.0); MCV 83.5 fL (80.0-100.0); RBC 3.46 mil/uL (4.20-5.00); RDW 26.3 % (10.5-14.5); WBC 9.4 thou/uL (4.0-11.0)
[2021-02-05 06:15] LABS: CALCIUM 7.9 mg/dL (8.5-10.1); CREATININE 0.9 mg/dL (0.6-1.0); POTASSIUM 4.3 mmol/L (3.5-5.1)
[2021-02-05 07:00] LABS: FOLIC ACID 30.8 ng/mL (8.6-58.9)
[2021-02-07] MEDS ORDERED: NEURONTIN 300M300 M2 PO (11:43)
[2021-02-07] MEDS ORDERED: TRAMADOL 50 MG50 MG PO (11:43)
[2021-02-07] MEDS ORDERED: ENTEREG12 MG PO (11:43)
[2021-02-07] MEDS ORDERED: LISINOPRIL10 MG PO (11:43)
[2021-02-07] MEDS ORDERED: COLACE 100 MG100 MG PO (11:43)
[2021-02-07] MEDS ORDERED: PROTONIX 20 MG20 M1 PO (11:43)
--- NOTE | 2021-02-07 15:58 | NUR ---
INITIAL REHAB ASSESSMENT: SW reviewed chart and spoke with nursing and attending physician. Pt was admitted to acute rehab from [facility]. Pt is alert/orientated x 4 and lives at home alone. 1 step to enter and No steps inside. Pt does have a walker to use if needed. Prior to admission, pt was independent with ADLs. No use of DME. Pt has used [facility] in the past. Pt reports she does not currently have a PCP. Pt is in the BPCI program. Plan is for pt to discharge home when medically stable. CM is following to assist as needed with discharge planning.
--- NOTE | 2021-02-07 18:36 | NUR ---
PT WAS ADMITTED TO [facility] REHAB (511) FROM [facility] (357) AT APPROX 1645. TRANSPORTED BY UPHOLSTERER HELPER & BELONGINGS BROUGHT UP BY NURSE. REPORT WAS TAKEN FROM NURSE. PT WAS ORIENTED TO UNIT, ROOM, CALL LIGHT. ADMISSION ASSESSEMENT, EDUCATION, & SEPSIS SCREENING COMPLETED. PT WAS PROVIDED WITH REHAB ADMIT FOLDER. 2/3 OF PT SONS WERE PRESENT AT THE END OF THE ADMISSION PROCESS. CODE 7461 WAS PROVIDED TO ALL 3 VIA EACH OTHER. VITALS WERE ASSESSED. LABS REVIEWED. PT IS A&OX4. IS ON ROOM AIR, BUT HAS SOB. IS STABLE. ADOMINAL BINDER IN PLACE. DRSG TO ABD C/D/I. NURSE ON 3W REPORTED DRSGS WERE CHANGE EARLIER TODAY. PT IS ABLE TO TURN SELF IN BED. FAVORS THE LEFT SIDE. PT HAS ICD IN LEFT CHEST. DENIES PAIN. PT IS CURRENTLY IN ROOM WATCHING TV. CALL LIGHT WITHIN REACH. WILL CONTINUE TO MONITOR.
[2021-02-07 19:47] VITALS: BP 111/53
--- NOTE | 2021-02-08 05:35 | NUR ---
ASSUMED CARE AT 1900 OF 02/07. PATIENT IS A&OX4, DENIES PAIN WHILE AT REST, BUT REPORTS PAIN IN ABDOMINAL AREA WITH MOVEMENT. EXHIBITS SOB AT EXERTION. REQUIRES EXTRA TIME WITH TRANSFERS. PATIENT WAS A MODERATE ASSIT OF 1 USING GB, TO PIVOT TO BEDSIDE COMMODE TO VOID AND HAVE A BM. ABDOMINAL BINDER IN PLACE AND PATIENT IS USING ABDOMINAL PILLOW. PATIENT TOLERATED MEDICATION WHOLE WITH THIN LIQUIDS. REQUESTED FOR A CUP OF ICE WITH A SPOON, AND WAS PROVIDED. NO CONCERNS AT THIS TIME, WILL CONTINUE TO MONITOR.
[2021-02-08 06:26] LABS: HEMATOCRIT 30.9 % (37.0-47.0); HEMOGLOBIN 9.5 gm/dL (12.0-15.0); MCH 25.4 pg (26.0-34.0); MCHC 30.8 g/dL (28.0-37.0); MCV 82.4 fL (80.0-100.0); RBC 3.75 mil/uL (4.20-5.00); RDW 27.4 % (10.5-14.5); WBC 9.5 thou/uL (4.0-11.0)
[2021-02-08 06:47] LABS: CALCIUM 7.6 mg/dL (8.5-10.1); CREATININE 0.7 mg/dL (0.6-1.0); POTASSIUM 4.1 mmol/L (3.5-5.1)
[2021-02-08 08:00] VITALS: BP 143/66
--- NOTE | 2021-02-08 08:26 | HC ---
[facility] [place] [address] CONSULTATION Name: ODILIA FLOYD Room #: 511-P ADM IN M.R.#: [id number] Admission: 02/07/21 Attend Phys: Corky Beltran MD Discharge: Date of : 42 Report #: [id number] THIS REPORT FOR: cc: Adolfo Rivas MD [facility] Adolfo Rivas MD [facility] Rafiq Bermudez MD ~ DOC #: [id number] cc: Adolfo Rivas MD, Zhou Mack MD, Shahid Britton MD, MD Rafiq Juares MD REQUESTING PHYSICIAN: Jesus Gr M.D. REASON FOR CONSULTATION: Early stage right-sided colon cancer. HISTORY OF PRESENT ILLNESS: The patient is an 81-year-old female originally from [place] who worked at the [employer] office who presented with shortness of air, was found to have hemoglobin of 5.9. On subsequent evaluation, she had a large mass in the cecum. She underwent surgery on I believe February 03 and was found to have invasive mildly differentiated adenocarcinoma invading the submucosa T1 lesion 4 cm, 0/17 lymph nodes involved. No perineural or lymphovascular invasion. Preop CT scans were unremarkable. CEA preop I believe was around 1.4. She has a family history of a sister with colon cancer. No one else with polyps. There had been a brother. I think she also mentions she has several sons. At this time, the patient does have some generalized discomfort, but no specific headache, fevers, chills, nausea, vomiting. Does have some generalized weakness. Does have some slightly loose bowels. No dysuria, no blood in the urine or stool. PAST HISTORY: Notable for the history of heart attack and stent at [facility] in 2014, history of hypertension, hyperlipidemia, left frontal CVA, mitral regurgitation, partial hysterectomy, CHF, EF in 2015 of 15-20%, PFO, renal artery stenosis, COPD. RADIOLOGIC STUDIES: This admit include a CT chest, abdomen and pelvis without signs of metastatic disease. LABORATORY DATA: Recently shows a creatinine of 0.8. Iron initially had been quite low with a saturation of 2% on 01/24, iron of 9 at same day, TIBC of 377, coags were normal on the . Recent hemoglobin 8.9, platelets of 240. White count 9.4, normal differential. TSH is normal at 0.957. Ferritin 10. Folate 30.8. Vitamin B12 12.76. CEA 1.4. Urinalysis fairly unremarkable. [facility] [address] [place] [address] CONSULTATION Name: ODILIA FLOYD Room #: 511-P ADM IN M.R.#: [id number] Admission: 02/07/21 Attend Phys: Corky Beltran MD Discharge: Date of : 42 Report #: [id number] PHYSICAL EXAMINATION: GENERAL: The patient appears her stated age. VITAL SIGNS: Height is 5 feet 6 inches, which is 167.6 cm, 111 pounds 3 ounces, which is 50.4 kilograms. Recent blood pressure 144/80, O2 sat 93%, respirations 18, pulse 100, afebrile. FACE: Symmetric. MOOD: Alert, pleasant, talkative. NEUROLOGIC: Speech and thought pattern normal. Moving upper extremities. LUNGS: Clear anteriorly and posterior without rhonchi, rales or wheezes. HEART: Appears regular rate. NECK: No enlarged lymph nodes in the supraclavicular, cervical, axillary region. ABDOMEN: Postop minimally tender. EXTREMITIES: Without clubbing, cyanosis. ASSESSMENT AND PLAN: 1. Stage I T1 N0 0 lymph node positive adenocarcinoma of the colon with several other polyps around the time of diagnosis. I do not see MSI test. We will ask for that to be done given family history of colon cancer. Do not see any reason for adjuvant chemo or radiation therapy. 2. Iron deficiency anemia. Should be on iron replacement. 3. History of coronary artery disease and heart attack. Defer meds list. 4. History of hypertension. Meds per others. 5. History of hyperlipidemia. Meds per others. 6. History of left frontal cerebrovascular accident, history per others. 7. Mitral regurgitation, history per others. 8. Congestive heart failure history per others. 9. Patent foramen ovale, history per others. 10. Renal artery stenosis, history per others. 11. Chronic obstructive pulmonary disease per others. CURRENT MEDICATIONS: At this time in the hospital include apixaban 5 b.i.d. restarted yesterday, multivitamins daily, atorvastatin 40 mg daily, carvedilol 6.25 b.i.d., sennosides 8.6 daily, Tylenol p.r.n., docusate p.r.n., gabapentin 300 mg t.i.d., Tylenol p.r.n., hydromorphone p.r.n., tramadol p.r.n., Zofran p.r.n., zolpidem p.r.n., pantoprazole 40 daily. Rafiq Bermudez MD [facility]/ANI [facility] [address] [place] [address] CONSULTATION Name: ODILIA FLOYD Room #: 511-P ADM IN M.R.#: [id number] Admission: 02/07/21 Attend Phys: Corky Beltran MD Discharge: Date of : 42 Report #: [id number] <ELECTRONICALLY SIGNED> By: Rafiq Bermudez MD 02/08/21 0826 0735 Rafiq Bermudez MD /nt
--- NOTE | 2021-02-08 14:06 | NUR ---
Team meeting, recommendation. can stay with one of her son's that live local by putting bed on main level if needed. will need pcp. dc 02/16 hh ( pt, ot, st and nursing). BPCI. No dme needs, has 4ww.
--- NOTE | 2021-02-08 14:41 | NUR ---
REMOVED BANDAGES AND NASREEN ARE NOW OPEN TO AIR PER DR. BARNETT.
--- NOTE | 2021-02-08 17:55 | NUR ---
ASSUMED CARE OF PT AT 0700. PT. A&oX4. TOLERATING REGULAR DIET. DRESSINGS TO ABD ARE C/D/I. VS CHARTED. PT. ON RA. UP TO TOILET FOR B&B. PT WORKING WITH THERAPIES WILLINGLY. PT. GAIT STEADY WITH WALKER AND GAIT BELT. PT. IS CALL LIGHT APPROPRIATE. WILL CONTINUE TO MONITOR.
[2021-02-08 19:10] VITALS: BP 111/51
--- NOTE | 2021-02-09 05:20 | NUR ---
ASSUMED CARE AT 1900 OF 02/08. PATIENT IS A&OX4. REPORTS PAIN WITH MOVEMENT AND COUGH/SNEEZES. REMINDED TO USE ABDOMINAL PILLOW WHEN COUGHING/SNEEZING AND TRANSFERING. REQUESTED TO HAVE ABD BINDER OFF FOR THE NIGHT. PRN TRAMADOL USED TO MANAGE PAIN. PATIENT ALSO REQUESTED FOR A SLEEP AID, ONCALL PROVIDER WAS CONTACTED AND NEW ORDER FOR MELATONIN FOR SLEEP AID RECEIVED. 1 DOSE OF MELATONIN ADMINISTERED BEFORE 2200. PATIENT SLEPT THROUGHOUT NIGHT, ABLE TO TURN SELF IN BED, FAVORS BEING ON HER RIGHT SIDE. NO CONCERNS AT THIS TIME, WILL CONTINUE TO MONITOR.
[2021-02-09 07:15] VITALS: BP 123/65
[2021-02-09 08:45] LABS: HEMATOCRIT 32.8 % (37.0-47.0); MCH 25.4 pg (26.0-34.0); MCHC 30.5 g/dL (28.0-37.0); MCV 83.2 fL (80.0-100.0); RBC 3.94 mil/uL (4.20-5.00); WBC 9.5 thou/uL (4.0-11.0)
[2021-02-09 08:58] LABS: CALCIUM 7.8 mg/dL (8.5-10.1); CREATININE 0.8 mg/dL (0.6-1.0); POTASSIUM 4.4 mmol/L (3.5-5.1)
--- NOTE | 2021-02-09 12:52 | NUR ---
ASSUMED CARE OF PT AT 0715. PT IS A&X4. IS ON ROOM AIR. HAS SOB WITH EXERTION. IS STABLE. REPORTS PAIN IN ABD THAT IS BEING MANAGED WITH ORAL PAIN MEDS & OTHER THEAPUETIC TECHNIQUES. NASREEN OPEN TO AIR & INTACT. ARE BEING KEPT DRY. PT IS UP WITH 1 ASSIST, GB, WALKER. FALL PRECUATIONS & HOURLY ROUNDING CONTINUED THIS SHIFT. LABS & VITALS REVIEWED. WILL CONTINUE TO MONITOR.
--- NOTE | 2021-02-09 19:18 | NUR ---
BP LOW AT SUPPER TIME, 105/48, HR 96. PT ASYMPTOMATIC. CALL PLACED TO DR. ODEN AND ORDERS RECIEVED TO HOLD IF SBP IS LESS THAN 110. PATIENT REFUSED HOSPITAL SUPPER, BUT ATE A [employer]UB SANDWITCH THAT HER SON BROUGHT IN. PT DENIES PAIN AND REPORTED THAT SHE HAD A GOOD DAY IN THERAPY.
[2021-02-09 19:28] VITALS: BP 101/46
--- NOTE | 2021-02-10 02:57 | NUR ---
PATIENT FINISHED CLUB SANDWICH AND IS SIPPING ICE IT MELTS. NASREEN CLEAN DRY INTACT, MIDDLE SENSITIVE TO TOUCH. PLEASANT, TAKING ONLY TYLENOL AT HS WITH REQUESTED MELATONIN. TALKED ON CELLPHONE AT HS WITH SON.
[2021-02-10 08:00] VITALS: BP 105/58
--- NOTE | 2021-02-10 16:38 | NUR ---
ASSUMED C/O PT. AT 0700. PT A&OX4. PT. NASREEN INTACT, REDNESS NOTED TO UMBILICAL AREA AROUND NASREEN. NO DRAINAGE NOTED. PT WILLINGLY WORKS WITH THERAPIES. PT. TOLERATING REGULAR DIET. STEADY GAIT NOTED WHILE AMBULATING WITH WALKER. PT. USES CALL LIGHT APPROPRIATELY. PT. BED ALARM AND CHAIR ALARM ON FOR SAFETY. WILL CONTINUE TO MONITOR.
[2021-02-10 19:23] VITALS: BP 166/73
--- NOTE | 2021-02-11 01:57 | NUR ---
UP TO TOILET WITH GAIT BELT AND WALKER, NASREEN CLEAN, DRY, AND INTACT. APPRECIATES TYLENOL AND MELATONIN AT HS, IS TAKING HER WATER IN THE FORM OF ICE CHIPS. PLEASANT
[2021-02-11 07:15] VITALS: BP 119/46
--- NOTE | 2021-02-11 10:40 | NUR ---
ASSUMED CARE OF PT AT 0700 THIS MORNING. PT IS A/OX4 AQND IS VERY QUIET. PT IS WANTING TO REST AND WILL WORK WITH PHYS. THRPY AND OT. PT NEEDS ENCOURAGEMENT TO EAT AND DRINK FLUIDS. ASSESSMENTS OTHERWISE UNREMARKABLE. CALL LIGHT AND OTHER NEEDS ARE PLACED WITHIN REACH. MEDS AND TX GIVEN NEEDED AND SCHEDULED.
[2021-02-11 19:34] VITALS: BP 115/58
--- NOTE | 2021-02-12 03:11 | NUR ---
assumed care approx 1900 evening 02/11. pt lying in bed with head of bed elevated dozing off and on. pt alert and oriented x4 at hs and took meds with water tolerating well. radha to abdomen cable driller, c/d/i. pt denies pain. pt up to bathroom tonight x1 to have bm. pt appears to be sleeping off and on. bed alarm on and call light in reach. will continue to monitor.
[2021-02-12 08:00] VITALS: BP 127/56
--- NOTE | 2021-02-12 17:21 | NUR ---
ASSUMED CARE OF PT. AT 0715. PT. A&OX4, PT. WORKED WITH THERAPIES BUT DID NOT DO FULL SESSION. PT. REFUSING MEALS, D/T DIARRHEAOVERNIGHT. PT. REFUSED COLACE THIS MORNING. PT. DID HAVE FAMILY BRING IN FOOD FOR HER LUNCH AND DINNER. RA, NASREEN INTACT. C/O PAIN TO ABDOMEN PO PAIN PILL GIVEN WITH STATED FAIR RELIEF. PT USES CALL LIGHT APPROPRIATELY.
[2021-02-12 19:30] VITALS: BP 116/63
--- NOTE | 2021-02-13 02:14 | NUR ---
assumed care approx 1900 evening 02/12. pt alert and oriented x4, appropriate and cooperative. pt talking on phone at change of shift. pt took hs meds with water tolerating well. pt given sleeping med per request and appears to be sleeping soundly. bed alarm on and call light in reach. will continue to monitor.
[2021-02-13 10:24] VITALS: BP 108/60
--- NOTE | 2021-02-13 17:47 | NUR ---
ASSUMED C/O PT AT 0700. PT A&OX4. PT UP TO BR WITH WALKER AND SBA. PT. USES CALL LIGHT APPROPRIATELY. PT. MOVES SLOW BUT STEADY. PT. REFUSES FOOD FROM [place] BUT FAMILY BRINGS FOOD IN. PT. DIET IS PROBABLY INADEQUATE. PT. WORKED WITH P.T. TODAY. BED ALARM AND CHAIR ALARM ACTIVATED. WILL CONTINUE TO MONITOR.
[2021-02-13 19:08] VITALS: BP 117/50
--- NOTE | 2021-02-13 23:28 | NUR ---
PT ALERT AND ORIENTED X 4. ABD INCISION C/D/I WITH NASREEN. PT DENIES PAIN OR DISCOMFORT. AMBIEN GIVEN AT HS PER PT REQUEST FOR SLEEP. BED ALARM ON FOR SAFETY. PT APPEARS TO BE SLEEPING ON HOURLY ROUNDS.
[2021-02-14 08:33] VITALS: BP 132/57
--- NOTE | 2021-02-14 14:43 | PLAN ---
[facility] [place] [address] [place] [address] REHAB UNIT PLAN OF CARE Name: ODILIA FLOYD Room #: 511-P ADM IN M.R.#: [id number] Admission: 02/07/21 Attend Phys: Corky Beltran MD Discharge: Date of : 42 Report #: [id number] THIS REPORT FOR: cc: Adolfo Rivas MD [facility] Adolfo Rivas MD [facility] Corky Beltran MD ~ DOC #: [id number] Corky Beltran MD DATE OF SERVICE: 02/09/2021 PROGRESS NOTE/OVERALL PLAN OF CARE SUBJECTIVE: The patient was seen back today in followup. She is in no distress. Last recorded temperature 97.9, pulse 94, respirations 20, blood pressure 111/51. No calf swelling. She is motivated and working in therapies with transfers, contact guard. Gait is 80 feet with front-wheeled walker. She is contact guard for lower body dressing with standby assistance; upper body dressing. Speech therapy is following as well with moderate cognitive deficits and moderate memory deficits. ASSESSMENT: 1. Medical complex with generalized debilitation. 2. Gait instability. 3. Tubular adenomas, status post right hemicolectomy. 4. 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 5. Recent weight loss. 6. Atrial fibrillation. 7. Hyperkalemia, resolved. 8. Coronary artery disease. PLAN: The overall plan of care is based on the pre-admission screen and garnered from therapy assessments. 1. Estimated length of stay is the plan for her to be discharged on 02/16/2021. 2. Medical prognosis is reasonably good. 3. Anticipated interventions includes the interdisciplinary acute inpatient rehabilitation program. 4. Anticipated functional outcomes would be for the patient to become modified independent with transfers, mobility, ADLs as well as cognition, communication issues that she can return back to the home setting. 5. Discharge destination would be back to the home setting. She does live alone in an apartment, but plans to go to her son's house. 6. Expected therapy by discipline includes PT, OT and speech 1 hour per day each five days a week throughout the duration of the acute inpatient rehabilitation stay. [place] [id number] REHAB UNIT PLAN OF CARE Name: ODILIA FLOYD Room #: 511-P [facility] IN [facility].#: [id number] Admission: 02/07/21 Attend Phys: Corky Beltran MD Discharge: Date of : 42 Report #: [id number] ADDENDUM: The patient's prognosis for significant practical improvement within a reasonable period of time appears good. Given the patient's complex medical condition and risk of further medical complication, rehabilitation services could not be safely provided at a lower level of care such as a fpc facility. MD KEILA Najera/KEELEY <ELECTRONICALLY SIGNED> By: Corky Beltran MD 02/14/21 1443 0907 58 Corky Beltran MD /nt
--- NOTE | 2021-02-14 14:43 | H ---
[facility] [place] [address] [place] [address] HISTORY AND PHYSICAL Name: ODILIA FLOYD Room #: 511-P ADM IN M.R.#: [id number] Admission: 02/07/21 Attend Phys: Corky Beltran MD Discharge: Date of : 42 Report #: [id number] THIS REPORT FOR: cc: Adolfo Rivas MD [facility] Adolfo Rivas MD [facility] Corky Belrtan MD ~ DOC #: [id number] Corky Beltran MD DATE OF SERVICE: 02/08/2021 ADDENDUM HISTORY OF PRESENT ILLNESS: The patient is an 81-year-old -Chinese female who was originally admitted to [facility] on 01/24/2021 with weight loss, nausea, fatigue. EGD with biopsy on 01/26/2021 was noted to have erosive esophagitis, hiatal hernia, gastritis. She also was noted to have colon cancer of the cecum with multiple colonic polyps, diverticulitis and internal hemorrhoids. General Surgery was consulted and she underwent a laparoscopic right hemicolectomy on 02/02/2021. She has a history of idiopathic cardiomyopathy and AICD. She was noted to be debilitated post surgery and has now been admitted for acute in-hospital inpatient rehabilitation. Please see the full admission of dictation. For past medical history, allergies, social history, please see the full history and physical documentation. She is noted to be a former smoker, history of occasional tobacco usage. REVIEW OF SYSTEMS: See the 14-point system as noted. PHYSICAL EXAMINATION: GENERAL: She is an alert, thin, 81-year-old -Chinese female, no obvious distress. Pleasant, follows basic commands without difficulty. HEENT: Appeared to be benign. VITAL SIGNS: Temperature 36.8, pulse 101, respirations 18, blood pressure is 143/66. CHEST: Sounded clear to auscultation. CARDIOVASCULAR: Regular rate and rhythm. ABDOMEN: Midline abdominal incision. Marana are in place, appears to be healing well. Bowel sounds are positive, soft, nontender. EXTREMITIES: She has functional range of motion of the upper and lower extremities, would grade her strength at probably a grade 4- to 3+/5. She does have a forward flexed somewhat kyphotic posturing while standing with a walker. She has been min assist, sit to stand. Knees tended to buckle while working and ambulation. ASSESSMENT: An 81-year-old female with the following problems: [address] [address] HISTORY AND PHYSICAL Name: ODILIA FLOYD Room #: 511-P [facility] IN [facility]#: [id number] Admission: 02/07/21 Attend Phys: Corky Beltran MD Discharge: Date of : 42 Report #: [id number] 1. Medical complex with generalized debilitation. 2. Gait instability. 3. Tubular adenoma, status post right hemicolectomy 02/02/2021. 4. 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 5. Recent weight loss. 6. Atrial fibrillation. 7. Hyperkalemia, resolved. 8. Coronary artery disease. PLAN: The patient has been admitted for acute in-hospital inpatient rehabilitation. Please see the documentation as noted. She will be involved with the interdisciplinary acute inpatient rehabilitation team to work on maximizing her functional independence, so that she can hopefully return back to her prior living situation. She is well motivated. Plan is to hopefully stay with one of her sons. We will have the forestry consultant physicians involved regarding her multiple medical comorbidities. Corky Beltran MD DGS/NIT <ELECTRONICALLY SIGNED> By: Corky Beltran MD 02/14/21 1443 1401 1457 Corky Beltran MD /nt
--- NOTE | 2021-02-14 18:16 | NUR ---
ASSUMED PATIENT CARE AT 0700. A/O X4. NO N/V. DENIES PAIN. UP WITH PT/OT. PROGRESSING TOWARDS POC GOALS.
[2021-02-14 19:18] VITALS: BP 93/48
[2021-02-14 20:00] VITALS: BP 118/60
--- NOTE | 2021-02-14 23:22 | NUR ---
PT ALERT AND ORIENTED X 4. AMB TO BR WITH WALKER AND ASSIST X 1 WITHOUT DIFFICULTY. ABD INCISIONS C/D/I WITH NASREEN. BP 93/48 AT START OF SHIFT. RECHECKED AT 1999 AND IT WAS 118/60. DENIES DIZZINESS OR BEING LIGHTHEADED. PT DENIES PAIN OR DISCOMFORT. AMBIEN GIVEN AT HS PER PT REQUEST FOR SLEEP. BED ALARM ON FOR SAFETY. PT APPEARS TO BE SLEEPING ON HOURLY ROUNDS.
[2021-02-15 07:15] VITALS: BP 120/58
[2021-02-15] MEDS ORDERED: ELIQUIS2.5 MG PO (13:40)
[2021-02-15] MEDS ORDERED: VITAMIN D350 MCG PO (13:42)
--- NOTE | 2021-02-15 13:49 | NUR ---
team meeting, radha ordered to be dc on abd. reported had some yellow drain at belly bottom area. stool was red today. Going to stay with son for little while after, dc home. BPCI, has 4ww. dc 02/16 hh ( pt, ot, st, nursing). will need assist with pills and bills. hospitalist will follow for hh needs.
[2021-02-15 19:39] VITALS: BP 117/58
--- NOTE | 2021-02-16 01:55 | NUR ---
assumed care approx 0 evening 02/15. pt lying in bed with head of bed elevated. pt alert and oriented x4, pleasant and cooperative. abdominal incision with optifoam in place c/d/i. pt took hs meds with water tolerating well. pt appears to be sleeping soundly. bed alarm on and call light in reach. will continue to monitor.
[2021-02-16 05:37] LABS: HEMATOCRIT 29.3 % (37.0-47.0); HEMOGLOBIN 9.4 gm/dL (12.0-15.0); MCH 26.2 pg (26.0-34.0); MCV 81.9 fL (80.0-100.0); PLATELET COUNT 625 thou/uL (150-400); RBC 3.57 mil/uL (4.20-5.00); RDW 27.6 % (10.5-14.5); WBC 7.9 thou/uL (4.0-11.0)
[2021-02-16 06:18] LABS: CREATININE 0.7 mg/dL (0.6-1.0); POTASSIUM 4.1 mmol/L (3.5-5.1)
[2021-02-16 07:15] VITALS: BP 117/53
--- NOTE | 2021-02-16 09:28 | NUR ---
PT LYING IN BED THIS AM. PT DENIES ANY PAIN. PT UP WITH WALKER AND ASSIST. PT VERY FAST GETTING UP AND TRAVELING. PT HAS INCISION TO ABD. PT HAS CRACKLES TO LLL AND ON ROOM AIR. PT DISCHARGING TODAY. 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
--- NOTE | 2021-02-16 09:40 | NUR ---
Referral faxed to amaya at home. Son from out of town flight was delayed so samuel will be picking her up today around 1300. Amaya castellano set up. BPCI
[2021-02-16 09:42] VITALS: BP 117/53
[2021-02-16 10:41] LABS: ABSOLUTE NEUTROPHILS 5.4 thou/uL (1.4-8.2)
[2021-02-16 10:42] LABS: ANISOCYTOSIS 3+
[2021-02-16] MEDS ORDERED: NORVASC5 MG PO (11:21)
[2021-02-16] MEDS ORDERED: POTASSIUM CHLO10 ME1 PO (11:22)
[2021-02-16] MEDS ORDERED: SPIRONOLACTONE25 MG PO (11:22)
[2021-02-16] MEDS ORDERED: TRAZODONE HCL50 MG PO (11:27)
[2021-02-16] MEDS ORDERED: LISINOPRIL10 MG PO (11:27)
--- NOTE | 2021-02-16 13:38 | NUR ---
PT VERBALY UNDERSTOOD D/C ORDERS. PT STATED SHE DIDN'T HAVE A FAMILY DR. DUE TO THEY KEPT MESSING UP HER MEDS. CHANGED DRESSING PRIOR TO LEAVING. WENT OVER DRESSING CHANGE AND GAVE A FEW DAYS SUPPLIES. PT LEFT VIA W/C TO CAR ACCOMPANIED BY SON.
--- NOTE | 2021-02-18 16:31 | HC ---
[facility] [place] [address] CONSULTATION Name: ODILIA FLOYD Room #: 511-P [facility] IN .R.#: [id number] Admission: 02/07/21 Attend Phys: Corky Beltran MD Discharge: 02/16/21 Date of : 42 Report #: [id number] THIS REPORT FOR: cc: Adolfo Rivas MD [facility] Adolfo Rivas MD [facility] Bienvenido Lal. PhD ~ DOC #: [id number] Bienvenido Lal, PhD DATE OF SERVICE: 02/13/2021 NEUROBEHAVIORAL STATUS EXAM AGE: 81 ATTENDING PHYSICIAN: Corky Beltran MD LICENSED LOAN OFFICER ASSISTANT: Bienvenido Lal, PhD CLINICAL PRESENTATION: The patient is an 81-year-old -Mongolian female originally admitted to the [facility] on 01/24/2021 with weight loss, nausea and fatigue. She was noted to have colon cancer of the cecum with multiple colonic polyps, diverticulitis and internal hemorrhoids. She underwent a laparoscopic right hemicolectomy on 02/02/2021. The patient was noted to be debilitated post-surgery and has been admitted for inpatient rehabilitation. 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 A complete description of her medical condition and history can be found in her medical record. Neuropsychological consultation was requested to provide assistance in the assessment of cognitive and emotional status and to provide recommendations and services. Prior to this most recent admission and medical event, she was living alone in her own home. The patient has three children, 2 live within the [place] area. She reports plans to move in with one of her sons following her hospitalization. The patient is a college graduate and worked in the [employer] prior to her group home. She has one brother and one sister. Their was no reported prior history of treatment for anxiety or depression. She indicated having had a CVA several years ago, which may be contributing to symptoms of cognitive disorder. TECHNIQUES UTILIZED: Clinical interview, review of medical records, staff consultation and behavioral observation, mini mental status exam [address] [address] CONSULTATION Name: ODILIA FLOYD Room #: 511-P [facility] IN [facility].#: [id number] Admission: 02/07/21 Attend Phys: Corky Beltran MD Discharge: 02/16/21 Date of : 42 Report #: [id number] version and clock drawing. EXAMINATION FINDINGS: The patient was alert and cooperative with the assessment. She accurately described events surrounding her admission. She reports having been diagnosed with cancer and felt like they were successfully able to eliminate it through surgical intervention. She does not report anxiety or depression. and states that her memory is fine. problems are reported to inlude difficulty with sleep, energy level and possibly word finding that is related to her previous stroke. Performance on the MMSE 2 brief version was in the impaired range with a raw score of 12/16. She was 3/3 for initial registration, 4/5 for orientation to time and 5/[address]. She was 0/3 for immediate recall and 3 items after a brief time delay and distraction. Performance on the MMSE 2 standard version was in the impaired range with a raw score 21/30. She was 1/5 for serial sevens. There is a very long delay in her response to serial sevens suggesting fairly severe deficits in attention and concentration. Naming, repetition, comprehension, reading and writing were within normal limits. The patient was unable to draw or copy a simple geometric design. Her clock drawing was impaired. She was unable to accurately place the numbers or hands at a designated time. The patient is presenting with deficits in immediate recall, sustained concentration and attention and visual spatial construction along with executive functioning. Deficits in cognition appear severe. DIAGNOSTIC IMPRESSION: Major neurocognitive disorder (dementia), unspecified with decreased insight - extent to be determined, likely in the mild to moderate range. RECOMMENDATIONS: The patient will require supervision to maintain safety in the management of medication finances and nutrition. Driving should be discontinued. A more thorough neuropsych assessment can assist in the clarification of neurocognitive deficits. Decreased insight places her at a increased safety risk. She has a very supportive family who will be providing additional assistance. Thank you very much for allowing me to provide the consultation on this patient. Bienvenido Lal, PhD [facility] [address] [address] CONSULTATION Name: ODILIA FLOYD Room #: 511-P [facility] IN .R.#: [id number] Admission: 02/07/21 Attend Phys: Corky Beltran MD Discharge: 02/16/21 Date of : 42 Report #: [id number] <ELECTRONICALLY SIGNED> By: Beinvenido Lal, PhD 02/18/21 1631 1709 0020 Bienvenido Lal, PhD /nt
== END 2021-02-16 13:30 | disposition home health service (06) | DRG 947 ==
PROVIDERS: Internal Medicine Cardiovascular Disease; Nurse Practitioner; Nurse Practitioner Family; ADMIT Physical Medicine & Rehabilitation; ATTEND Physical Medicine & Rehabilitation
DX: R53.81 Other malaise (principal); E43 Unspecified severe protein-calorie malnutrition; I42.9 Cardiomyopathy, unspecified; K92.2 Gastrointestinal hemorrhage, unspecified; C18.9 Malignant neoplasm of colon, unspecified; Q21.1 Atrial septal defect; Z68.1 Body mass index [BMI] 19.9 or less, adult; E87.5 Hyperkalemia; I25.10 Atherosclerotic heart disease of native coronary artery without angina pectoris; E78.5 Hyperlipidemia, unspecified; J44.9 Chronic obstructive pulmonary disease, unspecified; I50.9 Heart failure, unspecified; D50.9 Iron deficiency anemia, unspecified; I34.0 Nonrheumatic mitral (valve) insufficiency; R26.89 Other abnormalities of gait and mobility; F01.50 Vascular dementia, unspecified severity, without behavioral disturbance, psychotic disturbance, mood disturbance, and anxiety; E55.9 Vitamin D deficiency, unspecified; I70.1 Atherosclerosis of renal artery; Z60.2 Problems related to living alone; I11.0 Hypertensive heart disease with heart failure; F10.10 Alcohol abuse, uncomplicated; K63.9 Disease of intestine, unspecified; I48.0 Paroxysmal atrial fibrillation; Z90.711 Acquired absence of uterus with remaining cervical stump; Z86.73 Personal history of transient ischemic attack (TIA), and cerebral infarction without residual deficits; I25.2 Old myocardial infarction; Z87.891 Personal history of nicotine dependence; Z95.810 Presence of automatic (implantable) cardiac defibrillator; Z71.6 Tobacco abuse counseling; Z98.890 Other specified postprocedural states
CPT/HCPCS: 10112

== ENCOUNTER → 2021-10-25 | Outpatient (CLI) | payer OTHER ==
[~2021-10-25] MED LIST changes: +COLACE 100 MG100 MG PO; +ELIQUIS2.5 MG PO; +ENTEREG12 MG PO; +LISINOPRIL10 MG PO; +NEURONTIN 300M300 M2 PO; +POTASSIUM CHLO10 ME1 PO; +PROTONIX 20 MG20 M1 PO; +SPIRONOLACTONE25 MG PO; +TRAMADOL 50 MG50 MG PO; +TRAZODONE HCL50 MG PO; +VITAMIN D350 MCG PO
== END ==
LOC: SJCVC 10:16
PROVIDERS: ATTEND Internal Medicine Cardiovascular Disease
DX: R94.31 Abnormal electrocardiogram [ECG] [EKG] (principal); I21.9 Acute myocardial infarction, unspecified; I42.8 Other cardiomyopathies; E78.00 Pure hypercholesterolemia, unspecified; I48.91 Unspecified atrial fibrillation; I70.1 Atherosclerosis of renal artery; D68.59 Other primary thrombophilia; J44.9 Chronic obstructive pulmonary disease, unspecified; I25.10 Atherosclerotic heart disease of native coronary artery without angina pectoris; E11.9 Type 2 diabetes mellitus without complications; I11.0 Hypertensive heart disease with heart failure; I50.9 Heart failure, unspecified; Q21.1 Atrial septal defect; F17.210 Nicotine dependence, cigarettes, uncomplicated; Z86.73 Personal history of transient ischemic attack (TIA), and cerebral infarction without residual deficits; Z95.810 Presence of automatic (implantable) cardiac defibrillator; Z72.89 Other problems related to lifestyle; Z79.899 Other long term (current) drug therapy